=== PATIENT | female | born 1985 | race Two or more races ===

== ENCOUNTER → 2020-08-21 | Emergency (ER) | payer OTHER ==
[~2020-08-21] VITALS: Ht 154.9 cm; Wt 56.7 kg
[~2020-08-21] MED LIST: diphenhdrAMINE HCL 25 MG CAP PO ONE
[2020-08-21 04:50] VITALS: BP 129/91
== END | disposition home or self-care (01) ==
LOC: ER 04:47
DX: R21 Rash and other nonspecific skin eruption (principal); Z53.21 Procedure and treatment not carried out due to patient leaving prior to being seen by health care provider

== ENCOUNTER 2021-09-29 20:04 | Emergency (ER) | payer OTHER ==
[~2021-09-29] VITALS: Ht 154.9 cm; Wt 52.2 kg
[2021-09-29 20:44] LABS: Basophils # (auto) 0.1 10 ^3/uL (0-0.2); Basophils % (auto) 1.4 % (0.0-2.0); Eosinophils # (auto) 0.2 10 ^3/uL (0-0.8); Eosinophils % (auto) 2.6 % (0.0-7.0); Hematocrit 40.1 % (36.0-46.0); Hemoglobin 13.9 g/dL (12.2-16.2); Lymphocytes # (auto) 2.3 10 ^3/uL (0.4-5.4); Lymphocytes % (auto) 34.3 % (10.0-50.0); Mean Corpuscular Hemoglobin 32.8 pg (28.0-32.0); Mean Corpuscular Hgb Conc. 34.7 g/dL (32.0-36.0); Mean Corpuscular Volume 94.4 fL (80.0-100.0); Monocytes # (auto) 0.5 10 ^3/uL (0-1.3); Neutrophils # (auto) 3.7 10 ^3/uL (1.6-8.6); Neutrophils % (auto) 54.7 % (37.0-80.0); Nucleated Red Blood Cells % 0.1 %; Red Blood Cells 4.25 10^6/uL (4.0-5.20); Red Cell Distribution Width 12.3 % (11.8-14.3); White Blood Cell 6.7 10^3/uL (4.4-10.8)
[2021-09-29 21:01] LABS: Albumin 4.3 g/dL (3.4-5.0); Calcium 8.9 mg/dL (8.5-10.1); Magnesium 2.6 mg/dL (1.6-2.6); Potassium 3.6 mmol/L (3.5-5.1)
[2021-09-29 21:04] LABS: BUN/Creatinine Ratio 11.5; Bilirubin, Total 0.5 mg/dL (0.2-1.0); Total Protein 7.8 g/dL (6.4-8.2)
[2021-09-29 22:13] LABS: Urine Amorphous Crystal FEW /hpf (None Seen); Urine Bacteria FEW /hpf (None Seen); Urine Blood Negative /uL (Negative); Urine Mucus FEW (None Seen); Urine Specific Gravity 1.023 (1.001-1.035); Urine WBC 1 /hpf (0 - 5)
[2021-09-29] MEDS ORDERED: MECL25TA18 PO (22:47)
[2021-09-29 23:21] VITALS: BP 148/72
== END 2021-09-29 23:22 | disposition home or self-care (01) ==
LOC: ER 20:04
DX: R42 Dizziness and giddiness (principal)
CPT/HCPCS: 36415; 80053; 81001; 83735; 84702; 85025; 93005

== ENCOUNTER 2021-12-18 20:51 | Emergency (ER) | payer OTHER ==
[~2021-12-18 20:51] MED LIST changes: +MECL25TA18 PO; -diphenhdrAMINE HCL 25 MG CAP PO ONE
== END 2021-12-18 22:50 | disposition left against medical advice (07) ==
LOC: ER 20:51
DX: T78.40XA Allergy, unspecified, initial encounter (principal); Z53.21 Procedure and treatment not carried out due to patient leaving prior to being seen by health care provider; X58.XXXA Exposure to other specified factors, initial encounter

== ENCOUNTER 2021-12-24 21:17 | Emergency (ER) | payer OTHER ==
[~2021-12-24] VITALS: Ht 154.9 cm; Wt 49.9 kg
[2021-12-24 22:10] VITALS: BP 125/87
[2021-12-24 22:30] LABS: Urine Bacteria NONE SEEN /hpf (None Seen); Urine Blood Negative /uL (Negative); Urine Mucus FEW (None Seen); Urine Specific Gravity 1.028 (1.001-1.035); Urine WBC 1 /hpf (0 - 5)
[2021-12-24 23:11] LABS: Basophils # (auto) 0.1 10 ^3/uL (0-0.2); Eosinophils # (auto) 0.1 10 ^3/uL (0-0.8); Eosinophils % (auto) 1.9 % (0.0-7.0); Hematocrit 36.2 % (36.0-46.0); Hemoglobin 12.8 g/dL (12.2-16.2); Lymphocytes # (auto) 1.9 10 ^3/uL (0.4-5.4); Lymphocytes % (auto) 25.8 % (10.0-50.0); Mean Corpuscular Hemoglobin 33.6 pg (28.0-32.0); Mean Corpuscular Hgb Conc. 35.4 g/dL (32.0-36.0); Mean Corpuscular Volume 94.9 fL (80.0-100.0); Monocytes # (auto) 0.4 10 ^3/uL (0-1.3); Monocytes % (auto) 5.6 % (0.0-12.0); Neutrophils # (auto) 4.9 10 ^3/uL (1.6-8.6); Neutrophils % (auto) 65.7 % (37.0-80.0); Red Blood Cells 3.82 10^6/uL (4.0-5.20); Red Cell Distribution Width 12.5 % (11.8-14.3); White Blood Cell 7.4 10^3/uL (4.4-10.8)
[2021-12-24 23:26] LABS: Albumin 3.8 g/dL (3.4-5.0); BUN/Creatinine Ratio 20.3; Calcium 8.4 mg/dL (8.5-10.1); Potassium 3.7 mmol/L (3.5-5.1)
[2021-12-24 23:29] LABS: Bilirubin, Total 0.5 mg/dL (0.2-1.0); Total Protein 6.9 g/dL (6.4-8.2)
[2021-12-25 00:30] LABS: Thyroid Stimulating Hormone 4.9 uIU/mL (0.358-3.74)
== END 2021-12-25 01:24 | disposition home or self-care (01) ==
LOC: ER 21:17
DX: R07.89 Other chest pain (principal); R00.2 Palpitations; E07.9 Disorder of thyroid, unspecified
CPT/HCPCS: 36415; 80053; 81001; 83735; 84443; 84484; 84702; 85025; 85379; 93005

== ENCOUNTER 2022-01-05 21:02 | Emergency (ER) | payer OTHER ==
[2022-01-05 21:14] VITALS: BP 130/77
[2022-01-05 21:56] LABS: Basophils # (auto) 0.1 10 ^3/uL (0-0.2); Eosinophils # (auto) 0.1 10 ^3/uL (0-0.8); Eosinophils % (auto) 1.8 % (0.0-7.0); Hematocrit 39.6 % (36.0-46.0); Hemoglobin 13.8 g/dL (12.2-16.2); Lymphocytes # (auto) 2.1 10 ^3/uL (0.4-5.4); Lymphocytes % (auto) 30.1 % (10.0-50.0); Mean Corpuscular Hemoglobin 32.7 pg (28.0-32.0); Mean Corpuscular Hgb Conc. 34.8 g/dL (32.0-36.0); Mean Corpuscular Volume 94.1 fL (80.0-100.0); Monocytes # (auto) 0.5 10 ^3/uL (0-1.3); Neutrophils # (auto) 4.2 10 ^3/uL (1.6-8.6); Neutrophils % (auto) 60.1 % (37.0-80.0); Nucleated Red Blood Cells % 0.1 %; Red Blood Cells 4.21 10^6/uL (4.0-5.20); Red Cell Distribution Width 12.3 % (11.8-14.3)
[2022-01-05 22:08] LABS: BUN/Creatinine Ratio 19.1; Calcium 8.7 mg/dL (8.5-10.1); Potassium 3.4 mmol/L (3.5-5.1)
[2022-01-05 22:11] LABS: Bilirubin, Total 0.4 mg/dL (0.2-1.0); Total Protein 7.7 g/dL (6.4-8.2)
== END 2022-01-06 00:08 | disposition home or self-care (01) ==
LOC: ER 21:02
DX: R07.89 Other chest pain (principal); F41.9 Anxiety disorder, unspecified
CPT/HCPCS: 36415; 71045; 80053; 83880; 84484; 85025; 93005

== ENCOUNTER 2023-03-26 12:39 | Emergency (ER) | payer OTHER ==
[~2023-03-26] VITALS: Ht 154.9 cm; Wt 51.5 kg
[~2023-03-26 12:39] MED LIST changes: +MECL1TAB32 PO; -MECL25TA18 PO
[2023-03-26 13:00] VITALS: BP 109/78
[2023-03-26 13:51] LABS: Basophils # (auto) 0.1 10 ^3/uL (0-0.2); Basophils % (auto) 1.3 % (0.0-2.0); Eosinophils # (auto) 0.1 10 ^3/uL (0-0.8); Eosinophils % (auto) 1.6 % (0.0-7.0); Hematocrit 41.5 % (36.0-46.0); Hemoglobin 14.3 g/dL (12.2-16.2); Lymphocytes # (auto) 1.9 10 ^3/uL (0.4-5.4); Lymphocytes % (auto) 21.9 % (10.0-50.0); Mean Corpuscular Hemoglobin 32.5 pg (28.0-32.0); Mean Corpuscular Hgb Conc. 34.4 g/dL (32.0-36.0); Mean Corpuscular Volume 94.3 fL (80.0-100.0); Monocytes # (auto) 0.5 10 ^3/uL (0-1.3); Monocytes % (auto) 5.5 % (0.0-12.0); Neutrophils # (auto) 5.9 10 ^3/uL (1.6-8.6); Neutrophils % (auto) 69.7 % (37.0-80.0); White Blood Cell 8.5 10^3/uL (4.4-10.8)
[2023-03-26 14:21] LABS: Alanine Aminotransferase 17 U/L (7-40); Albumin 4.7 g/dL (3.2-4.8); Alkaline Phosphatase 69 U/L (46-116); Anion Gap 9 (5-15); Aspartate Aminotransferase 13 U/L (13-40); BUN/Creatinine Ratio 12.2 (10.0-20.0); Bilirubin, Total 1.1 mg/dL (0.2-1.0); Blood Urea Nitrogen 9 mg/dL (9-23); Calcium 9.4 mg/dL (8.5-10.1); Carbon Dioxide 25 mmol/L (20-30); Chloride 105 mmol/L (98-107); Glucose 84 mg/dL (74-106); Sodium 139 mmol/L (136-145)
[2023-03-26 14:22] LABS: Total Protein 7.6 g/dL (5.7-8.2)
[2023-03-26 15:12] VITALS: PULSE 88; RESP 17; TEMP 98.7; O2SAT 98
== END 2023-03-26 15:15 | disposition home or self-care (01) ==
LOC: ER 12:39
DX: F41.9 Anxiety disorder, unspecified (principal); R00.2 Palpitations
CPT/HCPCS: 36415; 80053; 85025

== ENCOUNTER 2023-12-17 23:45 | Emergency (ER) | payer OTHER ==
[~2023-12-17] VITALS: Ht 154.9 cm; Wt 55.4 kg
[~2023-12-17 23:45] MED LIST changes: +MECL-90 PO; -MECL1TAB32 PO
[2023-12-18 00:10] VITALS: BP 118/79; PULSE 100; RESP 14; O2SAT 98
[2023-12-18 01:48] LABS: Urine Bacteria FEW /hpf (None Seen); Urine Blood 3+ /uL (Negative); Urine Clarity Turbid (Clear); Urine Color Light-Orange (Yellow); Urine Mucus FEW (None Seen); Urine Protein, UAD TRACE (Negative); Urine Specific Gravity 1.035 (1.001-1.035); Urine Urobilinogen 2 mg/dL (Negative); Urine WBC 26 /hpf (0 - 5)
== END 2023-12-18 06:16 | disposition left against medical advice (07) ==
LOC: ER 23:45
DX: R42 Dizziness and giddiness (principal); R20.0 Anesthesia of skin; Z53.21 Procedure and treatment not carried out due to patient leaving prior to being seen by health care provider
CPT/HCPCS: 70450; 81001

== ENCOUNTER 2025-02-09 16:55 | Emergency (ER) | payer OTHER ==
[~2025-02-09] VITALS: Ht 154.9 cm; Wt 57.1 kg
--- NOTE | 2025-02-09 19:28 | DVH ---
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 Findings: No evidence of soft tissue swelling or radiopaque foreign body. Epiglottis appears normal. No radiopaque foreign body identified. Impression: 1. No radiopaque foreign body identified.
--- NOTE | 2025-02-09 20:03 | ED.PDOC ---
GI ASSESSMENT HPI Comments FELT LIKE FOOD STUCK IN THROAT ON WED, SEEN AND UC AND SENT HOME, ADVISED THROAT MAYBE IRITATED BY CHIP, TODAY FEELS LIKE SOMETHING STILL STUCK THERE. LUNGS CLEAR, AIRWAY CLEAR WITH NO DISTRESS. Chief Complaint: Cough Time Seen by MD: 18:16 Primary Care Provider: DIEGO Reviewed Notes: Nurses Notes, Medications, Allergies Allergies: Coded Allergies: NO KNOWN ALLERGIES (Unverified , 08/21/20) Home Meds Active Scripts Meclizine Hcl (Meclizine Hcl) 25 Mg Tab, 25 MG PO BIDP PRN for 15 Days, #30 MG Prov:ANNALEE MILLER MD 09/29/21 Information Source: Patient Mode of Arrival: Ambulatory Past Medical History PAST MEDICAL HISTORY: Denies Surgical History: Denies all surgeries PRACTICING UROLOGIST History: Denies all PRACTICING UROLOGIST Hx Family History Family History: Reviewed,noncontributory to illness Social History Smoker: Non-Smoker Alcohol: Denies ETOH Use Drugs: Denies Drug Use Lives In: Home Physical Exam General Appearance: No Apparent Distress, Normal HEENT: Pharynx Normal Neck: Full Range of Motion, Non-Tender Respiratory: Chest Non-Tender, Lungs Clear, No Accessory Muscle Use, No Respiratory Distress, Normal Breath Sounds Cardiovascular: No Edema, No JVD, No Murmur, No Gallop, Normal Peripheral Pulses, Regular Rate/Rhythm Breast Exam: Deferred Gastrointestinal: No Organomegaly, Non Tender, No Pulsatile Mass, Normal Bowel Sounds, Soft Genitalia: Deferred Pelvic: Deferred Rectal: Deferred Extremities: Normal range of motion Musculoskeletal : Apperance: Normal Neurologic: Alert, No Motor Deficits, Normal Affect, Normal Mood, No Sensory Deficits Cerebellar Function: Normal Reflexes: NOT DONE Skin: Dry, Normal Color, Warm Lymphatic: No Adenopathy Was a procedure done? Was a procedure done?: No GI differential Dx Differential Diagnosis: Gastritis/PUD, Gastroenteritis, GI hemorrhage X-Ray, Labs, Meds, VS Vital Signs Date Time Temp Pulse Resp B/P (MAP) Pulse Ox O2 Delivery O2 Flow Rate FiO2 02/09/25 20:32 80 19 99 Room Air 02/09/25 20:32 98.7 80 19 115/79 (91) 99 98.7 02/09/25 16:58 98.3 88 18 138/78 100 98.3 X-Ray, Labs, Meds, VS Comment CT negative for FB. Advised to rest increase p.o. fluids with electrolytes [id number] Tylenol or Motrin as needed for pain or fever per labeled dosing instructions. Advised take medications as prescribed side effects discussed. follow up with PCP in 2-3 days advised on ER return precautions. Time of 1ST Reevaluation: 18:30 Reevaluation 1ST: Unchanged Time of 2ND Reevaluation: 20:00 Reevaluation 2ND: Improved Patient Education/Counseling: Diagnosis, Treatment, Prognosis, Need For Follow Up Family Education/Counseling: No Family Present SEPSIS Sepsis Screen Date sepsis recognized/suspect: Feb 09, 2025 Time Sepsis recognized/suspect: 170 Recent Procedure: No On Antibiotic Therapy: No Respiratory Rate >20: No Heart Rate >90: No Temp<36 C (96.8 F) or >38.3 C: No SBP <90 or MAP <65 mmHG: No New Acute Mental Status Change: No Is the patient on CPAP, BIPAP,: No Physician Orders Neck For Soft Tissue (02/09/25 18:49) Vital Signs Date Time Temp Pulse Resp B/P (MAP) Pulse Ox O2 Delivery O2 Flow Rate FiO2 02/09/25 20:32 80 19 99 Room Air 02/09/25 20:32 98.7 80 19 115/79 (91) 99 98.7 02/09/25 16:58 98.3 88 18 138/78 100 98.3 Departure 1 Departure Time of Disposition: 20:01 Impression: Primary Impression: Throat pain in adult Disposition: 01 HOME / SELF CARE / HOMELESS Condition: Stable Discharged With: Self Critical Care Note Critical Care Time?: No Stability Stability form required: PRESTON García Feb 09, 2025 20:03
[2025-02-09 20:32] VITALS: BP 115/79; PULSE 80; RESP 19; TEMP 98.7; O2SAT 99
== END 2025-02-09 20:32 | disposition home or self-care (01) ==
LOC: ER 16:55
DX: R07.0 Pain in throat (principal); R05.9 Cough, unspecified
CPT/HCPCS: 70360